=== PATIENT | male | born 1995 | race Caucasian/White ===

== ENCOUNTER 2022-05-19 08:15 | Emergency (ER) | payer OTHER ==
[2022-05-19 08:38] VITALS: BMI 21.1
[2022-05-19] MEDS ORDERED: methaDONE HCL 10 MG TABLET PO ONE (09:37)
[2022-05-19] MEDS ORDERED: methaDONE HCL 40 MG DISPERSABLE TABLET ONE (09:48)
[2022-05-19 10:52] VITALS: BP 158/96; PULSE 70; RESP 18; TEMP 98
== END 2022-05-19 10:00 | disposition home or self-care (01) ==
LOC: JER 08:15
DX: F11.93 Opioid use, unspecified with withdrawal (principal)
CPT/HCPCS: 99283-25

== ENCOUNTER 2022-07-15 11:27 | Inpatient (IN) | payer OTHER ==
[2022-07-15 13:15] VITALS: BMI 21.2
[2022-07-15] MEDS ORDERED: BENZOCAINE/MENTHOL (CHLORASEPTIC ) LOZENGE MM PRN (15:24)
[2022-07-15] MEDS ORDERED: LOPERAMIDE HCL 2 MG CAPSULE PO PRN (15:24)
[2022-07-15] MEDS ORDERED: BENZONATATE 200 MG CAPSULE PO PRN (15:24)
[2022-07-15] MEDS ORDERED: BISMUTH SUBSALICYLATE 524 MG/30 ML PO PRN (15:24)
[2022-07-15] MEDS ORDERED: DICYCLOMINE HCL 10 MG CAPSULE PO PRN (15:24)
[2022-07-15] MEDS ORDERED: ONDANSETRON *ODT* 4 MG TABLET SL PRN (15:24)
[2022-07-15] MEDS ORDERED: NALOXONE HCL (KLOXXADO) 8 MG SPRAY NS PRN (15:24)
[2022-07-15] MEDS ORDERED: MAG HYDROX/AL HYDROX/SIMETH 30 ML UNIT-DOSE CUP PO PRN (15:24)
[2022-07-15] MEDS ORDERED: methaDONE HCL 10 MG TABLET (FOR DETOX USE ONLY) PO ONE ×2 (15:24→17:15)
[2022-07-15] MEDS ORDERED: POLYETHYLENE GLYCOL (HEALTHYLAX) 3350 17 GM PACKET PO PRN (15:24)
[2022-07-15] MEDS ORDERED: IBUPROFEN 400 MG TABLET (FP) PO PRN (15:24)
[2022-07-15] MEDS ORDERED: ACETAMINOPHEN 325 MG TABLET (FP) PO PRN (15:24)
[2022-07-15] MEDS ORDERED: NALOXONE HCL 0.4 MG/ML VIAL IM PRN (15:24)
[2022-07-15] MEDS ORDERED: cloNIDine HCL 0.1 MG TABLET PO PRN (15:24)
[2022-07-15] MEDS ORDERED: MAGNESIUM HYDROX 2400MG/30ML ORAL SUSPENSION 30 ML CUP PO PRN (15:24)
[2022-07-15] MEDS ORDERED: NICOTINE 10 MG CARTRIDGE (INHALER) IH PRN (15:24)
[2022-07-15] MEDS ORDERED: IBUPROFEN 600 MG TABLET (FP) PO PRN (15:24)
[2022-07-15] MEDS ORDERED: guaiFENesin 600 MG TABLET.ER (FP) PO PRN (15:24)
[2022-07-15] MEDS: THIAMINE HCL 100 MG TABLET (FP) PO SCH (22:51)
[2022-07-15] MEDS: SULFAMETHOXAZOLE/TRIMETHOPRIM 800MG/160MG D.S. TABLET PO SCH (22:51)
[2022-07-15] MEDS: MELATONIN 5 MG TABLETS PO SCH (22:51)
[2022-07-16] MEDS: SULFAMETHOXAZOLE/TRIMETHOPRIM 800MG/160MG D.S. TABLET PO SCH ×2 (10:36→23:03)
[2022-07-16] MEDS: PRENATAL VITAMINS W/ FOLIC ACID TABLET (FP) PO SCH (10:36)
[2022-07-16] MEDS: THIAMINE HCL 100 MG TABLET (FP) PO SCH (23:02)
[2022-07-16] MEDS: MELATONIN 5 MG TABLETS PO SCH (23:02)
[2022-07-17] MEDS ORDERED: methaDONE HCL 10 MG TABLET (FOR DETOX USE ONLY) PO ONE (10:00)
[2022-07-17] MEDS: PRENATAL VITAMINS W/ FOLIC ACID TABLET (FP) PO SCH (10:29)
[2022-07-17] MEDS: SULFAMETHOXAZOLE/TRIMETHOPRIM 800MG/160MG D.S. TABLET PO SCH ×2 (10:29→23:11)
[2022-07-17] MEDS: THIAMINE HCL 100 MG TABLET (FP) PO SCH (23:11)
[2022-07-17] MEDS: MELATONIN 5 MG TABLETS PO SCH (23:11)
[2022-07-18] MEDS: SULFAMETHOXAZOLE/TRIMETHOPRIM 800MG/160MG D.S. TABLET PO SCH ×2 (11:09→22:58)
[2022-07-18] MEDS: PRENATAL VITAMINS W/ FOLIC ACID TABLET (FP) PO SCH (11:10)
[2022-07-18] MEDS: hydrOXYzine PAMOATE 25 MG CAPSULE (FP) PO PRN (15:03)
[2022-07-18] MEDS: METHOCARBAMOL 500 MG TABLET PO PRN (16:18)
[2022-07-18 17:21] VITALS: RESP 18; TEMP 97.6
[2022-07-18] MEDS: THIAMINE HCL 100 MG TABLET (FP) PO SCH (22:58)
[2022-07-18] MEDS: MELATONIN 5 MG TABLETS PO SCH (22:58)
[2022-07-19 09:27] VITALS: BP 145/98; PULSE 98
[2022-07-19] MEDS ORDERED: methaDONE HCL 10 MG TABLET (FOR DETOX USE ONLY) PO ONE (10:00)
[2022-07-19] MEDS: PRENATAL VITAMINS W/ FOLIC ACID TABLET (FP) PO SCH (10:22)
[2022-07-19] MEDS: METHOCARBAMOL 500 MG TABLET PO PRN (10:23)
[2022-07-19] MEDS: SULFAMETHOXAZOLE/TRIMETHOPRIM 800MG/160MG D.S. TABLET PO SCH (10:23)
[2022-07-19] MEDS: hydrOXYzine PAMOATE 25 MG CAPSULE (FP) PO PRN (10:23)
== END 2022-07-19 12:47 | disposition home or self-care (01) | DRG 773 ==
LOC: YASAS 11:27 → Y3N 15:12
PROVIDERS: ADMIT Allergy & Immunology; ATTEND Surgery
PROC: HZ2ZZZZ Detoxification Services for Substance Abuse Treatment (ICD-10-PCS; principal; 2022-07-15)
DX: F11.23 Opioid dependence with withdrawal (principal); F14.20 Cocaine dependence, uncomplicated; F17.210 Nicotine dependence, cigarettes, uncomplicated; F41.9 Anxiety disorder, unspecified; G47.00 Insomnia, unspecified; L02.31 Cutaneous abscess of buttock; Z28.310 Unvaccinated for COVID-19; Z28.9 Immunization not carried out for unspecified reason; Z88.0 Allergy status to penicillin; Z91.013 Allergy to seafood
CPT/HCPCS: 87811; C9803-CS; U0003; U0005

== ENCOUNTER 2022-11-17 17:41 | Inpatient (IN) | payer OTHER ==
[2022-11-17 19:41] VITALS: BMI 21.4
[2022-11-17] MEDS ORDERED: BISMUTH SUBSALICYLATE 524 MG/30 ML PO PRN (22:21)
[2022-11-17] MEDS ORDERED: IBUPROFEN 400 MG TABLET (FP) PO PRN (22:21)
[2022-11-17] MEDS ORDERED: ONDANSETRON *ODT* 4 MG TABLET SL PRN (22:21)
[2022-11-17] MEDS ORDERED: POLYETHYLENE GLYCOL (HEALTHYLAX) 3350 17 GM PACKET PO PRN (22:21)
[2022-11-17] MEDS ORDERED: ACETAMINOPHEN 325 MG TABLET (FP) PO PRN (22:21)
[2022-11-17] MEDS ORDERED: hydrOXYzine PAMOATE 25 MG CAPSULE (FP) PO PRN (22:21)
[2022-11-17] MEDS ORDERED: NALOXONE HCL 0.4 MG/ML VIAL IM PRN (22:21)
[2022-11-17] MEDS ORDERED: MAGNESIUM HYDROX 2400MG/30ML ORAL SUSPENSION 30 ML CUP PO PRN (22:21)
[2022-11-17] MEDS ORDERED: DICYCLOMINE HCL 10 MG CAPSULE PO PRN (22:21)
[2022-11-17] MEDS ORDERED: NALOXONE HCL (KLOXXADO) 8 MG SPRAY NS PRN (22:21)
[2022-11-17] MEDS ORDERED: guaiFENesin 600 MG TABLET.ER (FP) PO PRN (22:21)
[2022-11-17] MEDS ORDERED: NICOTINE POLACRILEX 2 MG GUM BUC PRN (22:21)
[2022-11-17] MEDS ORDERED: LOPERAMIDE HCL 2 MG CAPSULE PO PRN (22:21)
[2022-11-17] MEDS ORDERED: MAG HYDROX/AL HYDROX/SIMETH 30 ML UNIT-DOSE CUP PO PRN (22:21)
[2022-11-17] MEDS ORDERED: BENZOCAINE/MENTHOL (CHLORASEPTIC ) LOZENGE MM PRN (22:21)
[2022-11-17] MEDS ORDERED: BENZONATATE 200 MG CAPSULE PO PRN (22:21)
[2022-11-17] MEDS ORDERED: IBUPROFEN 600 MG TABLET (FP) PO PRN (22:21)
[2022-11-18] MEDS ORDERED: cloNIDine HCL 0.1 MG TABLET PO PRN (10:06)
[2022-11-18] MEDS ORDERED: methaDONE HCL 10 MG TABLET (FOR DETOX USE ONLY) PO ONE (10:15)
[2022-11-18] MEDS: PRENATAL VITAMINS W/ FOLIC ACID TABLET (FP) PO SCH (10:59)
[2022-11-18] MEDS: METHOCARBAMOL 500 MG TABLET PO PRN (10:59)
[2022-11-18] MEDS: NICOTINE 21 MG/24 HOURS TOPICAL PATCH TD SCH (10:59)
[2022-11-18] MEDS: MELATONIN 5 MG TABLETS PO SCH (22:43)
[2022-11-18] MEDS: THIAMINE HCL 100 MG TABLET (FP) PO SCH (22:43)
[2022-11-19] MEDS: METHOCARBAMOL 500 MG TABLET PO PRN (10:42)
[2022-11-19] MEDS: PRENATAL VITAMINS W/ FOLIC ACID TABLET (FP) PO SCH (10:42)
[2022-11-19] MEDS: NICOTINE 21 MG/24 HOURS TOPICAL PATCH TD SCH (10:43)
[2022-11-19 17:46] VITALS: RESP 16
[2022-11-19] MEDS: MELATONIN 5 MG TABLETS PO SCH (22:49)
[2022-11-19] MEDS: THIAMINE HCL 100 MG TABLET (FP) PO SCH (22:49)
[2022-11-20] MEDS ORDERED: methaDONE HCL 10 MG TABLET (FOR DETOX USE ONLY) PO ONE (10:00)
[2022-11-20] MEDS: NICOTINE 21 MG/24 HOURS TOPICAL PATCH TD SCH (10:27)
[2022-11-20] MEDS: PRENATAL VITAMINS W/ FOLIC ACID TABLET (FP) PO SCH (10:27)
[2022-11-20 18:13] VITALS: BP 138/61; PULSE 62; TEMP 97.6
[2022-11-20] MEDS: THIAMINE HCL 100 MG TABLET (FP) PO SCH (23:56)
[2022-11-20] MEDS: MELATONIN 5 MG TABLETS PO SCH (23:56)
[2022-11-21] MEDS: METHOCARBAMOL 500 MG TABLET PO PRN (09:37)
[2022-11-21] MEDS: PRENATAL VITAMINS W/ FOLIC ACID TABLET (FP) PO SCH (09:38)
[2022-11-21] MEDS: NICOTINE 21 MG/24 HOURS TOPICAL PATCH TD SCH (09:39)
[2022-11-22] MEDS ORDERED: methaDONE HCL 10 MG TABLET (FOR DETOX USE ONLY) PO ONE (10:00)
== END 2022-11-21 11:16 | disposition left against medical advice (07) | DRG 770 ==
LOC: YASAS 17:41 → Y6N 23:07
PROVIDERS: ADMIT Allergy & Immunology; ATTEND Surgery
PROC: HZ2ZZZZ Detoxification Services for Substance Abuse Treatment (ICD-10-PCS; principal; 2022-11-17)
DX: F11.23 Opioid dependence with withdrawal (principal); F14.20 Cocaine dependence, uncomplicated; F13.20 Sedative, hypnotic or anxiolytic dependence, uncomplicated; F17.210 Nicotine dependence, cigarettes, uncomplicated; F19.282 Other psychoactive substance dependence with psychoactive substance-induced sleep disorder; Z59.00 Homelessness unspecified
CPT/HCPCS: 87635

== ENCOUNTER 2024-05-24 21:26 | Inpatient (IN) | payer OTHER ==
[2024-05-24] MEDS ORDERED: MIDAZOLAM HCL 5 MG/1 ML Single Dose Vial ONE ×2 (21:41→21:50)
[2024-05-24] MEDS: MIDAZOLAM HCL 5 MG/1 ML Single Dose Vial IM ONE ×2 (21:42→21:56)
[2024-05-24 22:25] LABS: ABSOLUTE IMMATURE GRANULOCYTES 0.02 x10^3/uL (0.0-0.031); BASOPHILS # 0.03 x10^3/uL (0.01-0.08); EOSINOPHIL % 3.5 % (0.8-7.0); EOSINOPHILS # 0.21 x10^3/uL (0.04-0.54); HEMATOCRIT 31.2 % (40.1-51.0); HEMOGLOBIN 9.6 g/dL (13.7-17.5); MCHC 30.8 g/dl (32.3-36.5); MEAN CELL VOLUME 84.8 fl (79.0-92.2); MEAN PLT VOLUME 9.8 fl (9.4-12.4); MONOCYTE # 0.63 x10^3/uL (0.30-0.82); MONOCYTE % 10.5 % (5.3-12.2); PLATELET COUNT # 309 x10^3/uL (163-337); RDW 15.9 % (11.9-15.3)
[2024-05-24 22:35] LABS: VENOUS BASE EXCESS 2.4 mmol/L (-2-2); VENOUS PCO2 52.9 mmHg (38-52); VENOUS PH 7.353 (7.310-7.410)
[2024-05-24 22:55] LABS: POTASSIUM 3.5 mmol/L (3.5-5.1)
[2024-05-24 22:57] LABS: ALBUMIN 2.9 g/dl (3.4-5.0); BLOOD UREA NITROGEN 22.7 mg/dL (7-18); CALCIUM 8.3 mg/dL (8.5-10.1)
[2024-05-24 23:01] LABS: CREATININE 1.1 mg/dL (0.55-1.3)
[2024-05-24 23:02] LABS: BILIRUBIN,TOTAL 0.2 mg/dL (0.2-1); TOT PROT 6.7 g/dl (6.4-8.2)
[2024-05-24 23:29] LABS: ERYTHROCYTE SEDIMENTATION RATE 20 mm/hr (0-10)
[2024-05-24] MEDS ORDERED: MIDAZOLAM HCL 2 MG/2 ML SINGLE DOSE VIAL ONE (23:59)
[2024-05-25] MEDS ORDERED: ACETAMINOPHEN INJECTION 100 ML ONE
[2024-05-25] MEDS ORDERED: KETOROLAC TROMETHAMINE 15 MG/ML VIAL ONE
[2024-05-25] MEDS: KETOROLAC TROMETHAMINE 15 MG/ML VIAL IVPUSH ONE ×2 (00:04→05:39)
[2024-05-25] MEDS: ACETAMINOPHEN 1000 MG/100 ML BAG IVPB ONE (00:06)
[2024-05-25] MEDS: MIDAZOLAM HCL 2 MG/2 ML SINGLE DOSE VIAL IVPUSH ONE (00:06)
[2024-05-25] MEDS ORDERED: PIPERACILLIN/TAZOB 3.375 GM 3.375 GM/50 ML BAG IVPB ONE (00:51)
[2024-05-25] MEDS: PIPERACILLIN/TAZOB 3.375 GM 3.375 GM in DEXTROSE 5%-WATER - 50 ML IVPB ONE (00:51)
[2024-05-25] MEDS ORDERED: VANCOMYCIN 1 GM PREMIX (F) 1 GM/200 ML BAG ONE (00:51)
[2024-05-25] MEDS: VANCOMYCIN 1,000 MG in DEXTROSE 5%-WATER - 250 ML IVPB ONE (00:55)
[2024-05-25 05:19] LABS: URINE BARBITURATES NEGATIVE (NEGATIVE)
[2024-05-25 05:20] LABS: PHENCYCLIDINE,URINE NEGATIVE (NEGATIVE)
[2024-05-25 05:21] LABS: COCAINE, UR POSITIVE (NEGATIVE); METHADONE, UR POSITIVE (NEGATIVE); OPIATES, URI POSITIVE (NEGATIVE); URINE AMPHETAMINES POSITIVE (NEGATIVE); URINE BENZODIAZEPINES POSITIVE (NEGATIVE)
[2024-05-25 05:32] VITALS: BMI 19.8
[2024-05-25 06:20] LABS: HIV INTERPRETATION NEGATIVE (NEGATIVE)
[2024-05-25] MEDS ORDERED: IBUPROFEN 400 MG TABLET (FP) PO PRN (06:27)
[2024-05-25] MEDS ORDERED: PIPERACILLIN/TAZOB 2.25 GM 2.25 GM in DEXTROSE 5%-WATER - 50 ML IVPB SCH ×2 (08:00→09:00)
[2024-05-25 08:07] LABS: ABSOLUTE IMMATURE GRANULOCYTES 0.03 x10^3/uL (0.0-0.031); BASOPHILS # 0.03 x10^3/uL (0.01-0.08); EOSINOPHIL % 3.2 % (0.8-7.0); EOSINOPHILS # 0.24 x10^3/uL (0.04-0.54); HEMATOCRIT 34.9 % (40.1-51.0); HEMOGLOBIN 10.6 g/dL (13.7-17.5); MCHC 30.4 g/dl (32.3-36.5); MEAN CELL VOLUME 85.1 fl (79.0-92.2); MEAN PLT VOLUME 9.8 fl (9.4-12.4); MONOCYTE # 0.76 x10^3/uL (0.30-0.82); MONOCYTE % 10.1 % (5.3-12.2); PLATELET COUNT # 300 x10^3/uL (163-337); RDW 15.8 % (11.9-15.3); Reticulocyte % 0.63 % (0.51-1.81)
[2024-05-25 08:26] LABS: POTASSIUM 3.8 mmol/L (3.5-5.1)
[2024-05-25 08:28] LABS: CALCIUM 8.8 mg/dL (8.5-10.1)
[2024-05-25 08:29] LABS: BLOOD UREA NITROGEN 21.1 mg/dL (7-18); MAGNESIUM 1.8 mg/dL (1.8-2.4)
[2024-05-25 08:32] LABS: CREATININE 1.2 mg/dL (0.55-1.3); PHOSPHOROUS 3.8 mg/dL (2.5-4.9)
[2024-05-25 08:33] LABS: BILIRUBIN,TOTAL 0.2 mg/dL (0.2-1)
[2024-05-25 08:34] LABS: TOT PROT 7.2 g/dl (6.4-8.2)
[2024-05-25] MEDS: LORazepam 2 MG/ML SDV VIAL IVPUSH PRN (09:09)
[2024-05-25] MEDS: ENOXAPARIN NA (PORCINE) 40 MG/0.4 ML DISP.SYRIN SQ SCH (09:09)
[2024-05-25] MEDS: SODIUM CHLORIDE 1,000 ML IV SCH (09:09)
[2024-05-25 09:15] VITALS: BP 127/78; PULSE 69; RESP 20; TEMP 97.9
[2024-05-25] MEDS ORDERED: AZTREONAM 1 GM in DEXTROSE 5%-WATER - 50 ML IVPB SCH (12:00)
== END 2024-05-25 12:11 | disposition left against medical advice (07) | DRG 383 ==
LOC: JER 21:26 → JERBED 05-25 01:54 → J7W 05-25 05:11
PROVIDERS: ADMIT Internal Medicine
DX: L03.116 Cellulitis of left lower limb (principal); F11.129 Opioid abuse with intoxication, unspecified; D64.9 Anemia, unspecified; F17.210 Nicotine dependence, cigarettes, uncomplicated; R45.1 Restlessness and agitation; R74.01 Elevation of levels of liver transaminase levels; Z59.00 Homelessness unspecified
CPT/HCPCS: 36415; 73590-TC-LT-FY; 80053; 80307; 82550; 82553; 82728; 82803; 83540; 83550; 83735; 84100; 84466; 85025; 85651; 86140; 86705; 86707; 87081; 87340; 87350; 87389; 87517; 99285-25; J0131

== ENCOUNTER 2024-07-29 12:49 | Inpatient (IN) | payer OTHER ==
[2024-07-29 15:06] VITALS: BMI 19.3
[2024-07-29] MEDS ORDERED: LOPERAMIDE HCL 2 MG CAPSULE PO PRN (15:28)
[2024-07-29] MEDS ORDERED: ACETAMINOPHEN 325 MG TABLET (FP) PO PRN (15:28)
[2024-07-29] MEDS ORDERED: guaiFENesin 600 MG TABLET.ER (FP) PO PRN (15:28)
[2024-07-29] MEDS ORDERED: METHOCARBAMOL 500 MG TABLET PO PRN (15:28)
[2024-07-29] MEDS ORDERED: BENZONATATE 200 MG CAPSULE PO PRN (15:28)
[2024-07-29] MEDS ORDERED: BISMUTH SUBSALICYLATE 524 MG/30 ML PO PRN (15:28)
[2024-07-29] MEDS ORDERED: NICOTINE POLACRILEX 2 MG GUM BUC PRN (15:28)
[2024-07-29] MEDS ORDERED: ONDANSETRON *ODT* 4 MG TABLET SL PRN (15:28)
[2024-07-29] MEDS ORDERED: MAGNESIUM HYDROX 2400MG/30ML ORAL SUSPENSION 30 ML CUP PO PRN (15:28)
[2024-07-29] MEDS ORDERED: NALOXONE (NARCAN) HCL 4 MG/0.1 ML SPRAY NS PRN (15:28)
[2024-07-29] MEDS ORDERED: IBUPROFEN 600 MG TABLET (FP) PO PRN (15:28)
[2024-07-29] MEDS ORDERED: MAG HYDROX/AL HYDROX/SIMETH 30 ML UNIT-DOSE CUP PO PRN (15:28)
[2024-07-29] MEDS ORDERED: NICOTINE POLACRILEX 2 MG LOZENGE BC PRN (15:28)
[2024-07-29] MEDS ORDERED: IBUPROFEN 400 MG TABLET (FP) PO PRN (15:28)
[2024-07-29] MEDS ORDERED: BENZOCAINE/MENTHOL (CHLORASEPTIC ) LOZENGE MM PRN (15:28)
[2024-07-29] MEDS ORDERED: DICYCLOMINE HCL 10 MG CAPSULE PO PRN (15:28)
[2024-07-29] MEDS ORDERED: POLYETHYLENE GLYCOL (HEALTHYLAX) 3350 17 GM PACKET PO PRN (15:28)
[2024-07-29] MEDS: cloNIDine HCL 0.1 MG TABLET PO PRN (16:36)
[2024-07-29] MEDS: methaDONE HCL 10 MG TABLET (FOR DETOX USE ONLY) PO ONE (16:37)
[2024-07-29] MEDS ORDERED: cloNIDine HCL 0.1 MG TABLET ONE (16:50)
[2024-07-29] MEDS ORDERED: methaDONE HCL 10 MG TABLET (FOR DETOX USE ONLY) ONE (16:50)
[2024-07-29 17:11] VITALS: RESP 18; TEMP 97.3
[2024-07-29] MEDS: CLINDAMYCIN HCL 150 MG CAPSULE (FP) PO SCH (17:26)
[2024-07-29 18:37] VITALS: BP 163/97; PULSE 104
[2024-07-29] MEDS ORDERED: THIAMINE 100 MG TABLET PO SCH (22:00)
[2024-07-29] MEDS ORDERED: MELATONIN 5 MG TABLETS PO SCH (22:00)
[2024-07-30] MEDS ORDERED: PRENATAL VITAMINS W/ FOLIC ACID TABLET (FP) PO SCH (10:00)
[2024-07-30] MEDS ORDERED: methaDONE HCL 10 MG TABLET (FOR DETOX USE ONLY) PO ONE (10:00)
[2024-08-01] MEDS ORDERED: methaDONE HCL 10 MG TABLET (FOR DETOX USE ONLY) PO ONE (10:00)
[2024-08-03] MEDS ORDERED: methaDONE HCL 10 MG TABLET (FOR DETOX USE ONLY) PO ONE (10:00)
== END 2024-07-29 19:30 | disposition left against medical advice (07) | DRG 770 ==
LOC: YASAS 12:49 → Y6N 16:48
PROVIDERS: ADMIT Allergy & Immunology; ATTEND Allergy & Immunology
PROC: HZ2ZZZZ Detoxification Services for Substance Abuse Treatment (ICD-10-PCS; principal; 2024-07-29)
DX: F11.23 Opioid dependence with withdrawal (principal); F17.210 Nicotine dependence, cigarettes, uncomplicated; Z59.00 Homelessness unspecified
CPT/HCPCS: 80305; 80307; 93005; 93010

== ENCOUNTER 2024-10-29 00:13 | Emergency (ER) | payer OTHER ==
[2024-10-29 00:28] VITALS: BP 112/72; PULSE 88; RESP 18; TEMP 98.3; BMI 17.1
[2024-10-29] MEDS ORDERED: ACETAMINOPHEN 1000 MG/100 ML BAG IVPB ONE (01:12)
[2024-10-29] MEDS ORDERED: ACETAMINOPHEN INJECTION 100 ML ONE (01:18)
[2024-10-29] MEDS ORDERED: DALBAVANCIN HCL 500 MG VIAL (RESTRICTED TO ID ONLY) IVPB ONE (01:19)
[2024-10-29] MEDS: DALBAVANCIN HCL 1,500 MG in DEXTROSE 5%-WATER - 500 ML IVPB ONE (02:14)
[2024-10-29 02:50] LABS: ABSOLUTE IMMATURE GRANULOCYTES 0.17 x10^3/uL (0.0-0.031); BASOPHILS # 0.04 x10^3/uL (0.01-0.08); EOSINOPHIL % 3.3 % (0.8-7.0); EOSINOPHILS # 0.26 x10^3/uL (0.04-0.54); MCHC 30.1 g/dl (32.3-36.5); MEAN CELL VOLUME 84.8 fl (79.0-92.2); MEAN PLT VOLUME 10.5 fl (9.4-12.4); MONOCYTE # 0.51 x10^3/uL (0.30-0.82); MONOCYTE % 6.4 % (5.3-12.2); RDW 17.1 % (12.0-15.6)
[2024-10-29 03:11] LABS: TOT PROT 7.7 g/dl (6.4-8.2)
[2024-10-29 03:12] LABS: CO2 30.0 mmol/L (21-32)
[2024-10-29 03:14] LABS: ALK PHOS 165.0 U/L (40-150)
[2024-10-29 03:16] LABS: SGOT/AST 47.0 U/L (5-34); SGPT/ALT 56.0 U/L (0-55)
[2024-10-29 03:17] LABS: CREATININE 0.81 mg/dL (0.55-1.3)
[2024-10-29 03:24] LABS: GLUCOSE,RANDOM 80.0 mg/dL (74-106)
[2024-10-29 04:32] LABS: HCV DIAGNOSTIC IN-HOUSE W/RFLX REACTIVE (NONREACTIVE); HIV INTERPRETATION NEGATIVE (NEGATIVE)
== END 2024-10-29 03:46 | disposition home or self-care (01) ==
LOC: JER 00:13
DX: L03.115 Cellulitis of right lower limb (principal); M79.661 Pain in right lower leg; F19.90 Other psychoactive substance use, unspecified, uncomplicated
CPT/HCPCS: 36415; 80053; 82962; 85025; 86803; 87389; 87522; 93971-TC-RT; 99285-25; J0875